=== PATIENT | male | born 1975 | race Two or more races ===

== ENCOUNTER 2024-04-24 16:01 | Emergency (ER) | payer BC, SELFPAY ==
[2024-04-24 16:08] VITALS: BP 155/92; PULSE 85; TEMP 37; O2SAT 100; BMI 33.3
[2024-04-24 16:22] VITALS: O2SAT 100
--- NOTE | 2024-04-24 16:31 | ED.GENADUL1 ---
HPI HPI - General Adult General Chief complaint: Headache Stated complaint: Headache Time Seen by Provider: 04/24/24 16:19 Source: patient Mode of arrival: walk-in Limitations: no limitations History of Present Illness HPI narrative: 48-year-old male presents here with chief complaint of right-sided facial pain and pain behind the right ear. Patient states someone noticed that he had facial asymmetry while at work. He states he had a headache yesterday. He took Tylenol and Motrin at home which did help with alleviate symptoms. Patient denies any fever today. He has no facial pain to palpation or pain to the mastoid area behind the right ear. Denies headache, blurred vision, double vision worse headache of his life or sudden onset of a headache today. Related Data Home Medications ?Medication ?Instructions ?Recorded ?Confirmed lisinopril 20 mg tablet 20 mg PO DAILY 04/24/24 04/24/24 metformin 500 mg tablet 500 mg PO BID 04/24/24 04/24/24 Previous Rx's ?Medication ?Instructions ?Recorded amoxicillin 500 mg-potassium 1 tab PO Q12H #20 tabs 04/24/24 clavulanate 125 mg tablet (Augmentin) fluticasone propionate 50 1 spray intranasal DAILY PRN nasal 04/24/24 mcg/actuation nasal congestion #16 grams spray,suspension (Flonase Allergy Relief) Allergies Allergy/AdvReac Type Severity Reaction Status Date / Time No Known Drug Allergies Allergy Verified 04/24/24 16:07 Opioid HPI Opioid Management Most Recent Opioid Data: Last Pain Scale 5 04/24/24 16:22 04/24/24 Last ED Pain Assessment 04/24/24 16:22 Review of Systems ROS Narrative All Systems are negative except as noted/marked.All systems reviewed and otherwise negative Status of ROS 10 or more systems reviewed and unremarkable except as noted in history and below [facility] Medical History (Updated 04/24/24 @ 16:31 by Starla Valenzuela) Hx of diabetes mellitus ?Z86.39 - Personal history of other endocrine, nutritional and metabolic disease (ICD-10) Hypertension ?I10 - Essential (primary) hypertension (ICD-10) Social History Little interest or pleasure in doing things: not at all Feeling down, depressed, or hopeless: not at all Exam Narrative Exam Narrative: Nurses note and vital signs reviewed and patient is not hypoxic. General: The patient appears well and in no apparent distress. Patient is resting comfortably on cart. Skin: Warm, dry, no pallor noted. There is no rash noted. Head: Normocephalic, atraumatic right sided facial swelling, non tender to palpation near ethmoid and sinus or posterior auriclular area Eye: Normal conjunctiva, no drainage, EOMI. PERRL Ears, Nose, Mouth, and Throat: oral mucosa is moist. Nares patent. Mouth without vesicles. Ear canals patent. Tm's without Erythema Cardiovascular: Regular Rate and Rhythm Respiratory: Patient is in no distress, no accessory muscle use, lungs are clear to auscultation, no wheezing, rales or rhonchi Back: non-tender, no CVA tenderness bilaterally to percussion. Musculoskeletal: The patient has no evidence of calf tenderness, no pitting edema, symmetrical pulses noted bilaterally Neurological: A&O x4, normal speech Psychiatric: Cooperative Constitutional Vital Signs, click to edit/add: Last Vital Signs Temp 98.6 F 04/24/24 16:08 Pulse 85 04/24/24 16:08 Resp 20 04/24/24 16:08 BP 155/92 H 04/24/24 16:08 Pulse Ox 100 04/24/24 16:22 O2 Del Method Room Air 04/24/24 16:22 Course Vital Signs Vital signs: Vital Signs Temperature 98.6 F 04/24/24 16:08 Pulse Rate 85 04/24/24 16:08 Respiratory Rate 20 04/24/24 16:08 Blood Pressure 155/92 H 04/24/24 16:08 Pulse Oximetry 100 04/24/24 16:08 Oxygen Delivery Method Room Air 04/24/24 16:08 Temperature 98.6 F 04/24/24 16:08 Pulse Rate 85 04/24/24 16:08 Respiratory Rate 20 04/24/24 16:08 Blood Pressure 155/92 H 04/24/24 16:08 Pulse Oximetry 100 04/24/24 16:22 Oxygen Delivery Method Room Air 04/24/24 16:22 Medical Decision Making Differential Diagnosis Differential Diagnosis: uri, sinusitis, facial swelling, mastoid swelling ,headache Medical Records Medical records reviewed: Yes I reviewed the patient's medical records Medical records narrative: 48-year-old male presents here with chief complaint of right-sided facial pain and pain behind the right ear. Patient states someone noticed that he had facial asymmetry while at work. He states he had a headache yesterday. He took Tylenol and Motrin at home which did help with alleviate symptoms. Patient denies any fever today. He has no facial pain to palpation or pain to the mastoid area behind the right ear. Examination is benign he has no pain in the mastoid area or the right facial sinus ethmoid maxillary sinus regions. He states he came in to be evaluated somewhat noted he had swelling to his face. No head CT is necessary at this time he is afebrile. He does not appear toxic. Complaint of minor headache yesterday. He said he had a headache earlier today as well and took some medications. Patient will be given a one-time dose of Toradol here and be placed on Augmentin for sinusitis, and Flonase. Patient agrees with plan of care. Reasons to return to the emergency room were discussed. Lab Data Lab results reviewed: Yes I reviewed the patient's lab results Discharge Plan Discharge Chief Complaint: Headache Clinical Impression: Headache, Sinusitis Patient Disposition: Home, Self-Care Condition: Good Prescriptions / Home Meds: New amoxicillin-pot clavulanate [Augmentin] 500-125 mg tablet 1 tab PO Q12H Qty: 20 0RF fluticasone propionate [Flonase Allergy Relief] 50 mcg/actuation spray,suspension 1 spray intranasal DAILY PRN (Reason: nasal congestion) Qty: 16 0RF Rx Instructions: administer into each nostril No Action lisinopril 20 mg tablet 20 mg PO DAILY metformin 500 mg tablet 500 mg PO BID Print Language: Yi Instructions: Sinusitis (ED) Referrals: KANDY JACKSON [Primary Care Provider] - 1 week
[2024-04-24] MEDS: KETOROLAC TROMETHAMINE 60 MG/2 ML VIAL IM (16:40)
[2024-04-24 16:59] LABS: Internal Control Within Normal Limits; SARS-CoV-2 Ag NEGATIVE (NEGATIVE)
== END 2024-04-24 16:48 | disposition home or self-care (01) ==
PROVIDERS: Physician Assistant; Emergency Provider Emergency Medicine; PCP Nurse Practitioner Family
DX: R51.9 Headache, unspecified (principal); J32.9 Chronic sinusitis, unspecified; Z20.822 Contact with and (suspected) exposure to COVID-19
CPT/HCPCS: 87811; 96372; 99284; J1885